=== PATIENT | female | born 1975 | race Native Hawaiian/Other Pacific Islander ===

== ENCOUNTER 2020-06-27 10:07 | Emergency (ER) | payer OTHER ==
[~2020-06-27] VITALS: Ht 160 cm; Wt 89.8 kg
[~2020-06-27 10:07] MED LIST: METF500T PO; METOPROLOL25 M1 OR; TOPIRAMATE25 M1 OR
[2020-06-27 10:49] VITALS: BP 100/53; TEMP 97.9
== END 2020-06-27 11:04 | disposition home or self-care (01) ==
LOC: ED 10:07
DX: M54.2 Cervicalgia (principal); G89.29 Other chronic pain; G56.93 Unspecified mononeuropathy of bilateral upper limbs
CPT/HCPCS: 93005; 96372; 99283; J1885; J2930

== ENCOUNTER 2022-12-12 12:30 | Outpatient (CLI) | payer OTHER ==
[2022-12-12 13:40] LABS: POTASSIUM 3.8 mmol/L (3.6-5.2)
== END 2022-12-12 23:21 | disposition home or self-care (01) ==
LOC: LABW 12:30
PROVIDERS: ATTEND Nurse Practitioner Primary Care
DX: R10.11 Right upper quadrant pain (principal)
CPT/HCPCS: 36415; 80053; 82150; 83690

== ENCOUNTER → 2022-12-26 | Outpatient (CLI) | payer OTHER | LOC: US 08:30 | PROVIDERS: ATTEND Nurse Practitioner Primary Care | DX: R10.11 Right upper quadrant pain (principal) ==

== ENCOUNTER 2023-04-26 09:42 | Observation (INO) | payer OTHER ==
[~2023-04-26] VITALS: Ht 160 cm; Wt 88.0 kg
[2023-04-26] VITALS (11 sets, daily range): BP systolic 102–133; BP diastolic 61–80; TEMP 97.6–98.2; Ht 160 cm; Wt 88.0 kg
[2023-04-26 10:04] LABS: PLATELET COUNT 342 K/uL (152-353)
[2023-04-26 10:11] LABS: POTASSIUM 4.5 mmol/L (3.6-5.2)
== END 2023-04-26 17:15 | disposition home or self-care (01) ==
LOC: ED 09:42 → EDIP 10:51
PROVIDERS: Family Medicine; ADMIT Nurse Practitioner Family; ATTEND Internal Medicine
DX: R07.89 Other chest pain (principal); I10 Essential (primary) hypertension; E11.9 Type 2 diabetes mellitus without complications; F17.210 Nicotine dependence, cigarettes, uncomplicated; E66.8 Other obesity; Z68.34 Body mass index [BMI] 34.0-34.9, adult; F32.A Depression, unspecified; E03.8 Other specified hypothyroidism; K21.9 Gastro-esophageal reflux disease without esophagitis; K76.0 Fatty (change of) liver, not elsewhere classified
CPT/HCPCS: 80053; 84484; 85027; 93005; 96372; 99221; 99284; G0378; J2405